=== PATIENT | male | born 1995 | race American Indian/Alaskan Native ===

== ENCOUNTER 2019-07-20 17:30 | Emergency (ER) | payer OTHER, SELFPAY ==
[2019-07-20 18:49] LABS: Absolute Lymphocytes (CBC) 2.4 K/uL (0.7-4.9); Basophils % 0.8 % (0-1.3); Hematocrit 47.1 % (39.6-49.0); Lymphocytes % 27.3 % (15.3-44.8); MPV 9.2 fL (7.6-11.3); RBC Red Blood Cell Count 5.26 M/uL (4.33-5.43)
[2019-07-20] MEDS ORDERED: IBUPROFEN 400 MG TAB ONE (19:04)
[2019-07-20] MEDS ORDERED: CYCLOBENZAPRINE 10 MG TAB ONE (19:04)
[2019-07-20 19:07] LABS: ALT/SGPT 42 U/L (12-78); AST/SGOT 17 U/L (15-37); Albumin 4.1 g/dL (3.4-5.0); Alkaline Phosphatase 65 U/L (45-117); BUN Blood Urea Nitrogen 10 mg/dL (7-18); Bicarbonate 26 mmol/L (21-32); Bilirubin Direct 0.1 mg/dL (0-0.2); Bilirubin Total 0.4 mg/dL (0.2-1.0); Glucose Level 89 mg/dL (74-106); Lipase 104 U/L (73-393); Magnesium 2.1 mg/dL (1.8-2.4); Potassium 4.3 mmol/L (3.5-5.1); Protein, Total 7.8 g/dL (6.4-8.2); Sodium Level 137 mmol/L (136-145); Troponin (Emerg Dept Use Only) < 0.02 ng/mL (0.0-0.045)
[2019-07-20 19:22] LABS: Protime INR 0.97
--- NOTE | 2019-07-20 19:42 | RAD REPORT ---
EXAM DESCRIPTION: RAD - Chest Pa And Lat (2 Views) - 07/20/2019 7:37 pm CLINICAL HISTORY: left lower chest pain Chest pain. COMPARISON: No comparisons FINDINGS: The lungs are clear. The heart is normal in size. No displaced fractures. IMPRESSION: No acute or concerning finding suspected.
--- NOTE | 2019-07-20 20:20 | EDPHYS ---
Physician Documentation [facility] Name: Shailesh Garza Age: 23 yrs Sex: Male : 1995 Arrival Date: 07/20/2019 Time: 17:31 Bed 15 Private MD: ED Physician Raman Griggs HPI: 07/20 17:57 This 23 yrs old Other Male presents to ER via Unassigned with complaints of left lower cp chest pain. 17:57 The patient or guardian reports chest pain that is located primarily in the left lower cp anterior and lateral chest. 17:57 The pain does not radiate. Associated signs and symptoms: Pertinent negatives: cp abdominal pain, cough, diaphoresis, lower extremity pain, lower extremity swelling, near syncope, syncope. 17:57 Duration: The patient or guardian reports a single episode, that is still ongoing. cp 17:57 Modifying factors: The symptoms are alleviated by remaining still, the symptoms are cp aggravated by movement, twisting torso. Historical: - Allergies: 18:02 No Known Allergies; iw - Home Meds: 18:02 None [Active]; iw - PMHx: 18:02 None; iw - PSHx: 18:02 None; iw - Immunization history:: Adult Immunizations not up to date. - Coronavirus screen:: The patient has NOT traveled to [place], [place], or [place] in the past 14 days. Proceed with normal triage process as indicated. - Social history:: Smoking status: Patient reports the use of cigarette tobacco products, smokes one-half pack cigarettes per day. - Ebola Screening: : Patient negative for fever greater than or equal to 101.5 degrees Fahrenheit, and additional compatible Ebola Virus Disease symptoms Patient denies exposure to infectious person Patient denies travel to an Ebola-affected area in the 21 days before illness onset No symptoms or risks identified at this time. ROS: 18:05 Constitutional: Negative for body aches, chills, fever, poor PO intake. cp 18:05 Eyes: Negative for injury, pain, redness, and discharge. cp 18:05 ENT: Negative for drainage from ear(s), ear pain, sore throat, difficulty swallowing, difficulty handling secretions. 18:05 Cardiovascular: Positive for chest pain, of the left lower anterior and lateral chest, Negative for edema, palpitations. 18:05 Respiratory: Negative for cough, dyspnea on exertion, shortness of breath, wheezing. 18:05 Abdomen/GI: Negative for abdominal pain, vomiting, diarrhea, constipation, anorexia. 18:05 Back: Negative for pain at rest, pain with movement, radiated pain. 18:05 : Negative for urinary symptoms. 18:05 Skin: Negative for rash. 18:05 Neuro: Negative for altered mental status, dizziness, headache, syncope, weakness. 18:05 All other systems are negative. Exam: 18:10 Constitutional: The patient appears in no acute distress, alert, awake, cp non-diaphoretic, non-toxic, well developed, well nourished. 18:10 Head/Face: Normocephalic, atraumatic. cp 18:10 Eyes: Periorbital structures: appear normal, Conjunctiva: normal, no exudate, no injection, Sclera: no appreciated abnormality, Lids and lashes: appear normal, bilaterally. 18:10 ENT: External ear(s): are unremarkable, Ear canal(s): are normal, clear, TM's: bulging, is not appreciated, bilaterally, dullness, bilaterally, erythema, is not appreciated, bilaterally, Nose: is normal, Mouth: Lips: moist, Oral mucosa: pink and intact, moist, Posterior pharynx: is normal, airway is patent, no erythema, no exudate. 18:10 Neck: ROM/movement: is normal, is supple, without pain, no range of motions limitations, no nuchal rigidity. 18:10 Chest/axilla: Inspection: normal, Palpation: crepitus, is not appreciated, tenderness, that is moderate, of the left lower anterior and lateral chest wall. 18:10 Cardiovascular: Rate: normal, Rhythm: regular, Heart sounds: murmur, not appreciated, rub, not appreciated, gallop, not appreciated, Edema: is not appreciated, JVD: is not appreciated. 18:10 Respiratory: the patient does not display signs of respiratory distress, Respirations: normal, no use of accessory muscles, no retractions, no splinting, no tachypnea, labored breathing, is not present, Breath sounds: are clear throughout, no decreased breath sounds, no stridor, no wheezing. 18:10 Abdomen/GI: Inspection: abdomen appears normal, Bowel sounds: active, all quadrants, Palpation: abdomen is soft and non-tender, in all quadrants, rebound tenderness, is not appreciated, voluntary guarding, is not appreciated, involuntary guarding, is not appreciated, no appreciated organomegaly. 18:10 Back: pain, is absent, ROM is normal. 18:10 Skin: no rash present. 18:10 Neuro: Orientation: to person, place \T\ time. Mentation: is normal, Motor: moves all fours, strength is normal. 18:56 ECG was reviewed by the Attending Physician. cp Vital Signs: 18:02 BP 125 / 91; Pulse 73; Resp 16; Temp 98.2; Pulse Ox 99% on R/A; Weight 70 kg; Height 5 iw ft. 2 in. (160 cm); 20:39 BP 128 / 85; Pulse 62; Resp 16; Pulse Ox 100% on R/A; rv 18:02 Body Mass Index 27.34 (70.00 kg, 160 cm) iw MDM: 17:59 Patient medically screened. cp 18:00 Differential diagnosis: acute pericarditis, chest wall pain, costochondritis, pleurisy, cp pneumonia, pneumothorax, pulmonary embolus. 20:18 Data reviewed: vital signs, nurses notes, lab test result(s), EKG, radiologic studies, cp plain films. 20:18 Test interpretation: by ED physician or midlevel provider: ECG, plain radiologic cp studies. Counseling: I had a detailed discussion with the patient and/or guardian regarding: the historical points, exam findings, and any diagnostic results supporting the discharge/admit diagnosis, lab results, radiology results, the need for outpatient follow up, a family practitioner, to return to the emergency department if symptoms worsen or persist or if there are any questions or concerns that arise at home. Response to treatment: the patient's symptoms have markedly improved after treatment, and as a result, I will discharge patient. 07/20 17:58 Order name: Basic Metabolic Panel; Complete Time: 19:24 cp 07/20 17:58 Order name: CBC with Diff; Complete Time: 19:24 cp 07/20 17:58 Order name: LFT's; Complete Time: 19:24 cp 07/20 17:58 Order name: Magnesium; Complete Time: 19:24 cp 07/20 17:58 Order name: PT-INR; Complete Time: 19:24 cp 07/20 17:58 Order name: Troponin (emerg Dept Use Only); Complete Time: 19:24 cp 02/ 17:58 Order name: EKG; Complete Time: 18:00 cp 02/ 17:58 Order name: Cardiac monitoring; Complete Time: 18:48 cp 02/ 17:58 Order name: Lipase; Complete Time: 19:24 cp 02/07 17:58 Order name: D-Dimer; Complete Time: 19:24 cp 02/07 19:25 Order name: XRAY Chest Pa And Lat (2 Views); Complete Time: 19:53 cp 02/07 19:53 Interpretation: Report reviewed. cp 02 17:58 Order name: EKG - Nurse/Tech; Complete Time: 18:48 cp 07/20 17:58 Order name: IV Saline Lock; Complete Time: 18:47 cp 07/20 17:58 Order name: Labs collected and sent; Complete Time: 18:48 cp 07 17:58 Order name: O2 Per Protocol; Complete Time: 18:48 cp 07 17:58 Order name: O2 Sat Monitoring; Complete Time: 18:48 cp EC:56 Rate is 64 beats/min. Rhythm is regular. RI interval is normal. QRS interval is normal. cp QT interval is normal. T waves are Flattened in lead aVL. Interpreted by me. Reviewed by me. Administered Medications: 19:06 Drug: Flexeril 10 mg Route: PO; rv 20:39 Follow up: Response: No adverse reaction rv 19:07 Not Given (Patient Refused): TORadol - Ketorolac 15 mg IVP once rv 19:07 Drug: Ibuprofen 800 mg Route: PO; rv 20:39 Follow up: Response: No adverse reaction rv Disposition: 07/21 03:53 Co-signature as Attending Physician, Raman Griggs MD I agree with the assessment and bernabe plan of care. Disposition: 07/20/19 20:19 Discharged to Home. Impression: Strain of muscle and tendon of unspecified wall of thorax. - Condition is Stable. - Discharge Instructions: Musculoskeletal Pain. - Prescriptions for Lidoderm 5 % Topical adhesive patch,medicated - apply 1 patch by TRANSDERMAL route once daily As needed; 1 box. Cyclobenzaprine 10 mg Oral Tablet - take 1 tablet by ORAL route every 8 hours As needed; 20 tablet. Diclofenac Sodium 75 mg Oral Tablet, Delayed Release (E.C.) - take 1 tablet by ORAL route 2 times per day As needed; 30 tablet. - Medication Reconciliation Form, Thank You Letter, Antibiotic Education, Prescription Opioid Use form. - Follow up: Private Physician; When: 2 - 3 days; Reason: Worsening of condition. - Problem is new. - Symptoms have improved. Signatures: Dispatcher [employer] EDMS Raman Griggs MD MD cha Williams, Irene RN RN iw Raman Yeh PA PA cp Vicente, Ronaldo, RN RN rv Corrections: (The following items were deleted from the chart) 07/20 18:17 17:58 Urine Dipstick-Ancillary ordered. cp iw 20:41 20:19 07/20/2019 20:19 Discharged to Home. Impression: Strain of muscle and tendon of rv unspecified wall of thorax. Condition is Stable. Forms are Medication Reconciliation Form, Thank You Letter, Antibiotic Education, Prescription Opioid Use. Follow up: Private Physician; When: 2 - 3 days; Reason: Worsening of condition. Problem is new. Symptoms have improved. cp
--- NOTE | 2019-07-20 20:20 | ER ---
Nurse's Notes [facility] Name: Shailesh Garza Age: 23 yrs Sex: Male : 1995 Arrival Date: 07/20/2019 Time: 17:31 Bed 15 Private MD: Diagnosis: Strain of muscle and tendon of unspecified wall of thorax Presentation: 07/20 17:56 Presenting complaint: Patient states: pain to LUQ pain, pain under left ribs for 3-4 iw days, was prescribed diclofenac gel but pain has gotten worse since today, denies nausea, vomiting or diarrhea. Transition of care: patient was not received from another setting of care. Onset of symptoms was July 17, 2019. Risk Assessment: Do you want to hurt yourself or someone else? Patient reports no desire to harm self or others. Initial Sepsis Screen: Does the patient meet any 2 criteria? No. Patient's initial sepsis screen is negative. Does the patient have a suspected source of infection? No. Patient's initial sepsis screen is negative. Care prior to arrival: None. 17:56 Method Of Arrival: Ambulatory iw 17:56 Acuity: SELVIN 3 iw Triage Assessment: 20:40 General: Appears in no apparent distress. Behavior is calm, appropriate for age. Pain: rv Complains of pain in chest. GI: No signs and/or symptoms were reported involving the gastrointestinal system. Historical: - Allergies: 18:02 No Known Allergies; iw - Home Meds: 18:02 None [Active]; iw - PMHx: 18:02 None; iw - PSHx: 18:02 None; iw - Immunization history:: Adult Immunizations not up to date. - Coronavirus screen:: The patient has NOT traveled to [place], [place], or [place] in the past 14 days. Proceed with normal triage process as indicated. - Social history:: Smoking status: Patient reports the use of cigarette tobacco products, smokes one-half pack cigarettes per day. - Ebola Screening: : Patient negative for fever greater than or equal to 101.5 degrees Fahrenheit, and additional compatible Ebola Virus Disease symptoms Patient denies exposure to infectious person Patient denies travel to an Ebola-affected area in the 21 days before illness onset No symptoms or risks identified at this time. Screenin:10 Abuse screen: Denies threats or abuse. Denies injuries from another. Nutritional sg screening: No deficits noted. Tuberculosis screening: No symptoms or risk factors identified. Never had TB. Fall Risk None identified. Assessment: 18:10 Reassessment: Patient appears in no apparent distress at this time. pt currently sg refusing an IV start at this time, will see if pt is fine with drawing blood. 18:10 Reassessment: pt requesting an XRAY due to rib pain. sg 18:28 Reassessment: Patient appears in no apparent distress at this time. ER charge nurse at sg bedside educating on IV insertion, blood draw, and pain medication, pt refusing IV start, allowing for blood draw, refusing IV pain medication. 20:41 GI: Bowel sounds Abd is soft and non tender X 4 quads. rv Vital Signs: 18:02 BP 125 / 91; Pulse 73; Resp 16; Temp 98.2; Pulse Ox 99% on R/A; Weight 70 kg; Height 5 iw ft. 2 in. (160 cm); 20:39 BP 128 / 85; Pulse 62; Resp 16; Pulse Ox 100% on R/A; rv 18:02 Body Mass Index 27.34 (70.00 kg, 160 cm) iw ED Course: 17:31 Patient arrived in ED. as 17:50 Raman Yeh PA is PHCP. cp 17:50 Masood Chan MD is Attending Physician. cp 18:01 Triage completed. iw 18:10 No provider procedures requiring assistance completed. sg 18:21 Arm band placed on. sg 18:29 Initial lab(s) drawn, by ED staff, sent to lab. sg 18:45 Ramana Curtis, RN is Primary Nurse. sg 19:04 Primary Nurse role handed off by Ramana Curtis RN rv 19:04 Sly hSell RN is Primary Nurse. rv 19:21 Attending Physician role handed off by Masood Chan MD cp 19:21 Raman Griggs MD is Attending Physician. cp 19:36 XRAY Chest Pa And Lat (2 Views) In Process Unspecified. EDMS 20:41 Patient has correct armband on for positive identification. rv 20:41 Patient did not have IV access during this emergency room visit. rv Administered Medications: 19:06 Drug: Flexeril 10 mg Route: PO; rv 20:39 Follow up: Response: No adverse reaction rv 19:07 Not Given (Patient Refused): TORadol - Ketorolac 15 mg IVP once rv 19:07 Drug: Ibuprofen 800 mg Route: PO; rv 20:39 Follow up: Response: No adverse reaction rv Outcome: 20:19 Discharge ordered by MD. cp 20:41 Discharged to home ambulatory, with family. rv 20:41 Condition: good 20:41 Discharge instructions given to patient, Instructed on discharge instructions, follow up and referral plans. medication usage, Demonstrated understanding of instructions, follow-up care, medications, Prescriptions given X 3. 20:41 Patient left the ED. rv Signatures: Dispatcher [employer] EDMS Ramana Curtis RN RN Jie Greer Irene, RN RN Raman Batista, ORALIA PA Sly Sims, RN RN rv
[2019-07-20 20:57] VITALS: TEMP 98.2
[2019-07-20 20:58] VITALS: BP 128/85; O2SAT 100
--- NOTE | 2019-07-22 06:29 | EKG ---
Test Date: 2019-07-20 Test Time: 18:48:52 Evidence Specialist: PALOMA MEASUREMENT RESULTS: Intervals: Rate: 64 KS: 136 QRSD: 82 QT: 366 QTc: 377 Bernice: P: 57 KS: 136 QRS: 48 T: 60 INTERPRETIVE STATEMENTS: Normal sinus rhythm Early repolarization Normal ECG No previous ECG available for comparison Electronically Signed On 07-22-19 06:29:07 BIOLOGICAL LAB TECHNICIAN by Arturo Martinez
== END 2019-07-20 20:41 | disposition home or self-care (01) ==
LOC: ER 17:30
DX: S29.019A Strain of muscle and tendon of unspecified wall of thorax, initial encounter (principal); X58.XXXA Exposure to other specified factors, initial encounter
CPT/HCPCS: 36415; 71046; 80048; 80076; 83690; 83735; 84484; 85025; 85379; 85610; 93005; 99284